=== PATIENT | male | born 1955 | race Caucasian/White ===

== ENCOUNTER 2018-10-28 10:04 | Emergency (ER) | payer MEDICARE, MEDICAID ==
[~2018-10-28] VITALS: Ht 170.2 cm; Wt 70.0 kg
[2018-10-28] MEDS ORDERED: ALBUTEROL SUL0.083 % IN (10:18)
[2018-10-28 10:39] LABS: HEMATOCRIT 53.2 % (39.0-50.0); HEMOGLOBIN 18.5 g/dl (14.0-18.0); IMMATURE GRANULOCYTES 0.3 % (0.0-5.0); MEAN CELL VOLUME 98.7 fL CALC (80.0-100.0); MEAN CORPUSCULAR HGB 34.3 pG CALC (26.0-32.0); MEAN CORPUSCULAR HGB CONC 34.8 g/L CALC (32.0-36.0); NEUT# 4.28 thou/uL (1.82-7.42); RED BLOOD COUNT 5.39 mill/uL (4.70-6.10); RED CELL DISTRI WIDTH 12.3 % (11.5-15.5)
[2018-10-28 10:53] LABS: ALBUMIN 4.7 g/dL (3.2-5.0); ALKALINE PHOSPHATASE 85 u/l (38-126); ANION GAP 15 (6-22 (CALC)); BILIRUBIN, TOTAL 0.6 mg/dL (0.0-1.4); BUN 17 mg/dL (8-23); BUN/CREATININE RATIO 18 (12-20 (CALC)); CARBON DIOXIDE 33 mmol/l (22-30); CHLORIDE 98 mmol/l (95-108); CREATININE 0.9 mg/dL (0.7-1.3); GFR > 60 ML/MIN (>=60 (CALC)); GFR FOR AFR.AMER. > 60 ML/MIN (>=60 (CALC)); POTASSIUM 4.8 mmol/l (3.5-5.1); SGOT/AST 25 u/l (19-48); SODIUM 141 mmol/l (137-146); TOTAL PROTEIN 8.9 g/dL (6.3-8.2)
[2018-10-28] MEDS ORDERED: LISINOPRIL20 MG PO (11:30)
[2018-10-28] MEDS ORDERED: METFORMIN500 MG PO (11:31)
[2018-10-28] MEDS ORDERED: LOVASTATIN20 M1 PO (11:31)
[2018-10-28] MEDS ORDERED: VENTOLIN HFA IN (11:32)
[2018-10-28] MEDS ORDERED: SPIRIVA HANDIHALER IN (11:32)
[2018-10-28] MEDS ORDERED: GABAPENTIN100 MG PO (11:33)
[2018-10-28] MEDS ORDERED: HYDROCHLOROT25 MG PO (11:33)
[2018-10-28] MEDS ORDERED: AMLODIPINE BESYL5 MG PO (11:35)
[2018-10-28] MEDS ORDERED: ZITHROMAX250 MG PO (11:52)
[2018-10-28] MEDS ORDERED: MEDDOSEPAK PO (11:52)
[2018-10-28 12:45] VITALS: BP 137/62
== END 2018-10-28 12:45 | disposition home or self-care (01) ==
LOC: ED 10:04
PROVIDERS: Emergency Medicine
DX: J44.1 Chronic obstructive pulmonary disease with (acute) exacerbation (principal); F17.210 Nicotine dependence, cigarettes, uncomplicated; R06.02 Shortness of breath; R06.2 Wheezing; R05 Cough
CPT/HCPCS: J3475

== ENCOUNTER 2019-02-14 11:24 | Inpatient (IN) | payer MEDICARE, MEDICAID ==
[~2019-02-14] VITALS: Ht 162.6 cm; Wt 66.2 kg
[~2019-02-14 11:24] MED LIST: ALBUTEROL SUL0.083 % IN; AMLODIPINE BESYL5 MG PO; GABAPENTIN100 MG PO; HYDROCHLOROT25 MG PO; LISINOPRIL20 MG PO; LOVASTATIN20 M1 PO; MEDDOSEPAK PO; METFORMIN500 MG PO; SPIRIVA HANDIHALER IN; VENTOLIN HFA IN; ZITHROMAX250 MG PO
[2019-02-14 11:55] LABS: IMMATURE GRANULOCYTES 0.3 % (0.0-5.0); MEAN CELL VOLUME 96.5 fL CALC (80.0-100.0); MEAN CORPUSCULAR HGB 33.5 pG CALC (26.0-32.0); MEAN CORPUSCULAR HGB CONC 34.7 g/L CALC (32.0-36.0); NEUT# 2.52 thou/uL (1.82-7.42); RED BLOOD COUNT 4.63 mill/uL (4.70-6.10)
[2019-02-14 12:21] LABS: HEMATOCRIT 44.7 % (39.0-50.0); HEMOGLOBIN 15.5 g/dl (14.0-18.0)
[2019-02-14 12:32] LABS: ALBUMIN 3.8 g/dL (3.2-5.0); ALKALINE PHOSPHATASE 78 u/l (38-126); BILIRUBIN, TOTAL 0.9 mg/dL (0.0-1.4); BUN 13 mg/dL (8-23); BUN/CREATININE RATIO 20 (12-20 (CALC)); CARBON DIOXIDE 32 mmol/l (22-30); CHLORIDE 93 mmol/l (95-108); CREATININE 0.7 mg/dL (0.7-1.3); GFR > 60 ML/MIN (>=60 (CALC)); GFR FOR AFR.AMER. > 60 ML/MIN (>=60 (CALC)); SGOT/AST 39 u/l (19-48); SODIUM 134 mmol/l (137-146)
[2019-02-14 12:33] LABS: ANION GAP 13 (6-22 (CALC)); POTASSIUM 3.5 mmol/l (3.5-5.1); TOTAL PROTEIN 6.6 g/dL (6.3-8.2)
[2019-02-14 12:43] LABS: MYOGLOBIN 57 ng/mL (0 - 121)
[2019-02-14 15:09] LABS: URINE BILIRUBIN - DIPSTICK NEGATIVE (NEGATIVE); URINE BLOOD DIPSTICK SMALL (NEGATIVE); URINE COLOR YELLOW; URINE GLUCOSE - DIPSTICK 250 mg/dL (NEGATIVE); URINE KETONE 15 mg/dL (NEGATIVE); URINE LEUK ESTERASE NEGATIVE (NEGATIVE); URINE NITRITE - DIPSTICK NEGATIVE (Negative); URINE PH 6.5 (4.5-8.0); URINE PROTEIN - DIPSTICK 30 mg/dL (NEG-TRACE); URINE SPECIFIC GRAVITY 1.025
[2019-02-14] MEDS ORDERED: CRESTOR5 MG PO (15:38)
[2019-02-14 16:49] VITALS: BP 151/57
[2019-02-14 19:20] VITALS: BP 135/74
[2019-02-15 04:20] VITALS: BP 165/90
[2019-02-15 05:12] VITALS: BP 130/73
[2019-02-15 05:15] LABS: ALBUMIN 3.5 g/dL (3.2-5.0); ALKALINE PHOSPHATASE 69 u/l (38-126); AMYLASE 32 u/l (30-110); ANION GAP 14 (6-22 (CALC)); BILIRUBIN, TOTAL 0.6 mg/dL (0.0-1.4); BUN 17 mg/dL (8-23); BUN/CREATININE RATIO 21 (12-20 (CALC)); CARBON DIOXIDE 34 mmol/l (22-30); CHLORIDE 91 mmol/l (95-108); CREATININE 0.8 mg/dL (0.7-1.3); GFR > 60 ML/MIN (>=60 (CALC)); GFR FOR AFR.AMER. > 60 ML/MIN (>=60 (CALC)); LIPASE 33 u/l (23-300); MAGNESIUM 2.1 mg/dL (1.6-2.3); POTASSIUM 4.1 mmol/l (3.5-5.1); SGOT/AST 42 u/l (19-48); SODIUM 136 mmol/l (137-146); TOTAL PROTEIN 6.3 g/dL (6.3-8.2)
[2019-02-15 05:20] LABS: HEMATOCRIT 42.8 % (39.0-50.0); HEMOGLOBIN 14.7 g/dl (14.0-18.0); IMMATURE GRANULOCYTES 0.8 % (0.0-5.0); MEAN CELL VOLUME 96.4 fL CALC (80.0-100.0); MEAN CORPUSCULAR HGB 33.1 pG CALC (26.0-32.0); MEAN CORPUSCULAR HGB CONC 34.3 g/L CALC (32.0-36.0); RED BLOOD COUNT 4.44 mill/uL (4.70-6.10); RED CELL DISTRI WIDTH 11.9 % (11.5-15.5)
[2019-02-15 06:26] LABS: PLATELET COUNT 106 thou/uL (130-400)
[2019-02-15 06:27] LABS: BAND 13 % (0-8); MANUAL DIFFERENTIAL YES
[2019-02-15 06:28] LABS: HYPOCHROMIA FEW; IMMATURE CELLS 1 %; OVALOCYTES FEW; PLATELET ESTIMATE MOD DECREASE
[2019-02-15 09:11] VITALS: BP 140/78
[2019-02-15 16:00] VITALS: BP 128/68
[2019-02-15 19:20] VITALS: BP 97/56
[2019-02-16 00:10] VITALS: BP 125/72
[2019-02-16 04:00] VITALS: BP 116/62
[2019-02-16 05:54] LABS: HEMATOCRIT 41.4 % (39.0-50.0); HEMOGLOBIN 14.1 g/dl (14.0-18.0); IMMATURE GRANULOCYTES 0.3 % (0.0-5.0); MEAN CELL VOLUME 96.7 fL CALC (80.0-100.0); MEAN CORPUSCULAR HGB 32.9 pG CALC (26.0-32.0); MEAN CORPUSCULAR HGB CONC 34.1 g/L CALC (32.0-36.0); PLATELET COUNT 132 thou/uL (130-400); RED BLOOD COUNT 4.28 mill/uL (4.70-6.10); RED CELL DISTRI WIDTH 12.1 % (11.5-15.5)
[2019-02-16 06:18] LABS: ALBUMIN 3.2 g/dL (3.2-5.0); ALKALINE PHOSPHATASE 59 u/l (38-126); AMYLASE 33 u/l (30-110); ANION GAP 13 (6-22 (CALC)); BILIRUBIN, TOTAL 0.4 mg/dL (0.0-1.4); BUN 25 mg/dL (8-23); BUN/CREATININE RATIO 33 (12-20 (CALC)); CARBON DIOXIDE 34 mmol/l (22-30); CHLORIDE 92 mmol/l (95-108); CREATININE 0.8 mg/dL (0.7-1.3); GFR > 60 ML/MIN (>=60 (CALC)); GFR FOR AFR.AMER. > 60 ML/MIN (>=60 (CALC)); LIPASE 59 u/l (23-300); MAGNESIUM 1.8 mg/dL (1.6-2.3); SGOT/AST 51 u/l (19-48); SODIUM 135 mmol/l (137-146); TOTAL PROTEIN 5.8 g/dL (6.3-8.2)
[2019-02-16 06:53] LABS: BAND 6 % (0-8); MANUAL DIFFERENTIAL YES
[2019-02-16 06:54] LABS: IMMATURE CELLS 1 %; MICROCYTOSIS FEW; PLATELET ESTIMATE NORMAL; POIKILOCYTOSIS FEW
[2019-02-16 06:56] LABS: OVALOCYTES FEW
[2019-02-16 09:30] VITALS: BP 138/78
[2019-02-16 12:00] VITALS: BP 123/67
[2019-02-16 17:33] VITALS: BP 144/85
[2019-02-16 19:10] VITALS: BP 112/71
[2019-02-17 00:11] VITALS: BP 139/92
[2019-02-17 04:08] VITALS: BP 133/68
[2019-02-17 05:03] LABS: HEMATOCRIT 44.6 % (39.0-50.0); HEMOGLOBIN 15.2 g/dl (14.0-18.0); IMMATURE GRANULOCYTES 1.4 % (0.0-5.0); MEAN CELL VOLUME 97.6 fL CALC (80.0-100.0); MEAN CORPUSCULAR HGB 33.3 pG CALC (26.0-32.0); MEAN CORPUSCULAR HGB CONC 34.1 g/L CALC (32.0-36.0); PLATELET COUNT 138 thou/uL (130-400); RED BLOOD COUNT 4.57 mill/uL (4.70-6.10); RED CELL DISTRI WIDTH 12.1 % (11.5-15.5)
[2019-02-17 05:16] LABS: ALBUMIN 3.3 g/dL (3.2-5.0); ALKALINE PHOSPHATASE 62 u/l (38-126); ANION GAP 14 (6-22 (CALC)); BILIRUBIN, TOTAL 0.5 mg/dL (0.0-1.4); BUN 24 mg/dL (8-23); BUN/CREATININE RATIO 32 (12-20 (CALC)); CARBON DIOXIDE 32 mmol/l (22-30); CHLORIDE 94 mmol/l (95-108); CREATININE 0.8 mg/dL (0.7-1.3); GFR > 60 ML/MIN (>=60 (CALC)); GFR FOR AFR.AMER. > 60 ML/MIN (>=60 (CALC)); MAGNESIUM 1.9 mg/dL (1.6-2.3); SGOT/AST 48 u/l (19-48); SODIUM 137 mmol/l (137-146); TOTAL PROTEIN 5.9 g/dL (6.3-8.2)
[2019-02-17 05:34] LABS: BAND 2 % (0-8); MANUAL DIFFERENTIAL YES; PLATELET ESTIMATE NORMAL
[2019-02-17 08:04] VITALS: BP 148/76
[2019-02-17 13:29] VITALS: BP 128/75
[2019-02-17 16:27] VITALS: BP 158/82
[2019-02-17 20:05] VITALS: BP 128/71
[2019-02-18 00:45] VITALS: BP 138/72
[2019-02-18 05:03] VITALS: BP 128/72
[2019-02-18 05:13] LABS: HEMATOCRIT 45.9 % (39.0-50.0); HEMOGLOBIN 15.3 g/dl (14.0-18.0); IMMATURE GRANULOCYTES 2.7 % (0.0-5.0); MEAN CELL VOLUME 98.5 fL CALC (80.0-100.0); MEAN CORPUSCULAR HGB 32.8 pG CALC (26.0-32.0); MEAN CORPUSCULAR HGB CONC 33.3 g/L CALC (32.0-36.0); PLATELET COUNT 161 thou/uL (130-400); RED BLOOD COUNT 4.66 mill/uL (4.70-6.10); RED CELL DISTRI WIDTH 12.2 % (11.5-15.5)
[2019-02-18 05:33] LABS: ALBUMIN 3.1 g/dL (3.2-5.0); ALKALINE PHOSPHATASE 61 u/l (38-126); ANION GAP 12 (6-22 (CALC)); BILIRUBIN, TOTAL 0.5 mg/dL (0.0-1.4); BUN 25 mg/dL (8-23); BUN/CREATININE RATIO 38 (12-20 (CALC)); CARBON DIOXIDE 33 mmol/l (22-30); CHLORIDE 97 mmol/l (95-108); CREATININE 0.6 mg/dL (0.7-1.3); GFR > 60 ML/MIN (>=60 (CALC)); GFR FOR AFR.AMER. > 60 ML/MIN (>=60 (CALC)); POTASSIUM 4.2 mmol/l (3.5-5.1); SGOT/AST 37 u/l (19-48); SODIUM 138 mmol/l (137-146); TOTAL PROTEIN 5.8 g/dL (6.3-8.2)
[2019-02-18 05:48] LABS: MANUAL DIFFERENTIAL YES
[2019-02-18 07:49] VITALS: BP 134/75
[2019-02-18 11:11] VITALS: BP 139/78
[2019-02-18] MEDS ORDERED: DOXYCYCL HYC100 MG PO (12:34)
== END 2019-02-18 12:52 | disposition home or self-care (01) | DRG 193 ==
LOC: ED 11:24 → ED-I 14:22 → ED 15:18 → MS2 15:19
PROVIDERS: Emergency Medicine; ADMIT Internal Medicine Nephrology; ATTEND Internal Medicine Nephrology
DX: J18.9 Pneumonia, unspecified organism (principal); J96.02 Acute respiratory failure with hypercapnia; J96.01 Acute respiratory failure with hypoxia; J44.1 Chronic obstructive pulmonary disease with (acute) exacerbation; J44.0 Chronic obstructive pulmonary disease with (acute) lower respiratory infection; I10 Essential (primary) hypertension; E11.40 Type 2 diabetes mellitus with diabetic neuropathy, unspecified; E78.5 Hyperlipidemia, unspecified; M19.90 Unspecified osteoarthritis, unspecified site; F17.200 Nicotine dependence, unspecified, uncomplicated; G89.29 Other chronic pain; Z99.81 Dependence on supplemental oxygen
CPT/HCPCS: G0378; J1956; J3475

== ENCOUNTER 2019-03-23 11:09 | Observation (INO) | payer MEDICARE, MEDICAID ==
[~2019-03-23] VITALS: Ht 165.1 cm; Wt 62.1 kg
[~2019-03-23 11:09] MED LIST changes: +CRESTOR5 MG PO; +DOXYCYCL HYC100 MG PO
--- NOTE | 2019-03-23 11:16 | NUR ---
PT TO ROOM VIA EMS PT STATES THAT HIS BLOOD SUGAR WAS ELEVATED. PT DID NOT WANT TO COME TO ER FOR PERSONAL REASONS AND ISSUES WITH HIS ADMISSION. PT AGREED TO STAY IN ER AND BE EVALUATED. \ PT IS AOX4. STATES THAT HIS BREATHING IS BAD BUT IS HIS NORMAL. PT DENIES ANY C/P, NEW SOB, N/V OR WEAKNESS.
[2019-03-23] MEDS ORDERED: ALPRAZOLAM0.5 MG PO (11:21)
[2019-03-23] MEDS ORDERED: DIFLUCAN100 MG PO (11:22)
[2019-03-23] MEDS ORDERED: TRESIBA FL100 UNIT/M SC (11:23)
[2019-03-23 11:48] LABS: IMMATURE GRANULOCYTES 0.4 % (0.0-5.0); MEAN CELL VOLUME 93.5 fL CALC (80.0-100.0); MEAN CORPUSCULAR HGB 32.7 pG CALC (26.0-32.0); NEUT# 2.67 thou/uL (1.82-7.42); RED BLOOD COUNT 3.85 mill/uL (4.70-6.10); RED CELL DISTRI WIDTH 12.9 % (11.5-15.5)
[2019-03-23 11:52] LABS: HEMOGLOBIN 12.6 g/dl (14.0-18.0)
--- NOTE | 2019-03-23 12:00 | NUR ---
PT RESTING ON STRETCHER, NO COMPLAINST STATED AT THIS TIME.
[2019-03-23 12:09] LABS: BUN 10 mg/dL (8-23); BUN/CREATININE RATIO 18 (12-20 (CALC)); CARBON DIOXIDE 30 mmol/l (22-30); CHLORIDE 91 mmol/l (95-108); CREATININE 0.5 mg/dL (0.7-1.3); GFR > 60 ML/MIN (>=60 (CALC)); GFR FOR AFR.AMER. > 60 ML/MIN (>=60 (CALC)); POTASSIUM 3.4 mmol/l (3.5-5.1)
[2019-03-23 12:11] LABS: ANION GAP 13 (6-22 (CALC)); SODIUM 131 mmol/l (137-146)
--- NOTE | 2019-03-23 12:30 | NUR ---
MD AT BEDSIDE TO DISCUSS FINDINGS AND TREATMENTS
--- NOTE | 2019-03-23 14:02 | NUR ---
REPROT CALLED TO [facility] SONIA LOWN ACCEPTED PT
--- NOTE | 2019-03-23 14:10 | NUR ---
PT TO CT AND WILL BE BROUGHT TO [facility]. SONIA BAH NOTIFIED OF TRANSPORT AND SCAN. PT BELONGINGS BROUGHT TO ROOM BY LINDA.
--- NOTE | 2019-03-23 14:22 | NUR ---
PT ARRIVED TO FLOOR VIA WHEELCHAIR IN STABLE CONDITION ACCOMPANIED BY SALZAAR CHEW;PT AMBULATED WITH A WEAK GAIT AND 1 PERSON ASSIST TO STANDING SCALE AND BEDSIDE;WT AND VS OBTAINED BY AVI SANDERS;PT A&O X3,ORIENTED TO ROOM AND CALL LIGHT SYSTEM;PT REPORTS ELEVATED BLOOD SUGAR DISCOVERED BY [facility];PT DENIES ANY CURRENT PAIN OR DISCOMFORTS,PAIN SCALE AND REPORTING EDUCATED;ASSSSMENT COMPLETED;RESPIRATIONS SHALLOW WITH EXERTIONAL SOB NOTED, PT HAS A HX OF COPD AND WEARS O2 @ 3L VIA NC;ABDOMEN SOFT ON PALPATION AND ACTIVE IN ALL 4 QUADRANTS,LAST BM UNKNOWN AND MD MADE AWARE;STRONG PEDAL PULSES;SKIN INTACT;EMS #20G TO LAC FLUSHED AND PATENT,SITE APPEARS HEALTHY;TELE MONITORING IN PLACE;ACCUCHECK 297;FRESH WATER PROVIDED;PT DENIES ANY ADDITIONAL NEEDS AND IS ENCOURAGED TO CALL FOR ASSISTANCE IF NEEDED;FALL PRECAUTIONS IN PLACE WITH CALL LIGHT IN REACH;WILL CONTINUE TO MONITOR
[2019-03-23 14:58] VITALS: BP 115/61; BP 122/69
--- NOTE | 2019-03-23 16:42 | NUR ---
AT BEDSIDE DISCUSSING POC.
--- NOTE | 2019-03-23 17:30 | NUR ---
PT RESTING IN SEMI FOWLERS POSITION;RESPIRATIONS SHALLOW ON O2 @ 3L VIA NC;PT DENIES ANY CURRENT PAIN OR NEEDS;TELE MONITORING IN PLACE;ACCUCHECK 258, PT COVERED WITH SLIDING SCALE PER ORDER;ENCOURAGED TO CALL FOR ASSISTANCE IF NEEDED;CALL LIGHT IN REACH;WILL CONTINUE TO MONITOR
--- NOTE | 2019-03-23 19:02 | NUR ---
BEDSIDE REPORT RECEIVED FROM HARRY DAIGLE. PT IN BED IN LOW FOWLERS POSITION, REQUESTING 02 EXTENSION TO TUBING SO THAT HE CAN AMBULATE TO RESTROOM, WILL PROVIDE. DENIES ANY OTHER NEEDS AT THIS TIME, CALL LIGHT IN HAND.
[2019-03-23 20:33] VITALS: BP 126/72
--- NOTE | 2019-03-23 20:35 | NUR ---
PT MED ORDERS PROVIDE AND ASSESSED, LUNG SOUNDS CLEAR, ABD FIRM NON-TENDER W/ACTIVE BOWEL SOUNDS. PT REPORTS LARGE WATERY BM JUST PREVIOUS TO MY ENTERING ROOM/REFUSED THE LACTULOSE. PT REQUESTING ICECREAM AND CRACKERS. POC DISCUSSED, WILL FOLLOW-UP WITH BLOOD SUGAR ACCU-CHECK PRIOR TO SNACK BEING PROVIDED.
[2019-03-24] VITALS: BP 125/71
--- NOTE | 2019-03-24 02:50 | NUR ---
PT MEDICATED ORDERS PROVIDE. PT WAS SLEEPING, BUT AWOKE TO MY VOICE. DENIES ANY OTHER NEEDS AT THIS TIME. TV AND LIGHTS ON, CALL LIGHT NEAR HAND
--- NOTE | 2019-03-24 04:45 | NUR ---
DEVI IS IN W/PT AT THIS TIME. PT IS REQUESTING COFFEE/PROVIDED, PT ASKED FOR HIS SUGAR TO BE CHECKED STATING HE IS STARVING, SNACK WAS PREVIOUSLY PROVIDED OVERNIGHT. BLOOD SUGAR ACCU-CHECK SHOWED 299.
[2019-03-24 04:46] VITALS: BP 132/78
[2019-03-24 05:19] LABS: HEMATOCRIT 36.7 % (39.0-50.0); HEMOGLOBIN 12.5 g/dl (14.0-18.0); MEAN CELL VOLUME 94.3 fL CALC (80.0-100.0); MEAN CORPUSCULAR HGB 32.1 pG CALC (26.0-32.0); MEAN CORPUSCULAR HGB CONC 34.1 g/L CALC (32.0-36.0); NEUT# 3.43 thou/uL (1.82-7.42); RED BLOOD COUNT 3.89 mill/uL (4.70-6.10); RED CELL DISTRI WIDTH 12.9 % (11.5-15.5)
[2019-03-24 05:48] LABS: ALBUMIN 3.3 g/dL (3.2-5.0); AMYLASE 57 u/l (30-110); BILIRUBIN, TOTAL 0.5 mg/dL (0.0-1.4); BUN 13 mg/dL (8-23); BUN/CREATININE RATIO 26 (12-20 (CALC)); CARBON DIOXIDE 29 mmol/l (22-30); CHLORIDE 90 mmol/l (95-108); CREATININE 0.5 mg/dL (0.7-1.3); GFR > 60 ML/MIN (>=60 (CALC)); GFR FOR AFR.AMER. > 60 ML/MIN (>=60 (CALC)); LIPASE 65 u/l (23-300); MAGNESIUM 1.7 mg/dL (1.6-2.3); SGOT/AST 18 u/l (19-48); SODIUM 131 mmol/l (137-146); TOTAL PROTEIN 6.6 g/dL (6.3-8.2)
[2019-03-24 05:59] LABS: IMMATURE GRANULOCYTES 1.3 % (0.0-5.0)
[2019-03-24 06:00] LABS: ALKALINE PHOSPHATASE 93 u/l (38-126); ANION GAP 17 (6-22 (CALC)); POTASSIUM 4.5 mmol/l (3.5-5.1)
--- NOTE | 2019-03-24 07:15 | NUR ---
REPORT RECEIVED FROM CARSONRN;PT RESTING IN SEMI FOWLERS POSITION;INTRODUCED SELF TO PT AND POC DISCUSSED;PT EXPRESSES AGITATION WITH NURSING STAFF AND MD REGARDING SCHEDULED MEDICATIONS AND REASON FOR ADMIT;INFORMED PT THAT ALL MEDICATIONS SCHEDULED ARE DONE BY THE MD AND CONCERNS REGARDING ANY MEDICATION CAN BE DISCUSSED DURING ROUNDS;PT STATES "I SHOULD'T HAVE EVEN BEEN ADMITTED", WRITTER EXPLAINED TO PT REASON FOR ADMIT AND INFORMED THAT HE COULD HAVE REFUSED ADMIT AT THE TIME OF ADMISSION IF HE TRULY DID NOT WANT TO STAY AT [facility];PT APOLOGIZES TO WRITTER AND STATES "IM NOT MAD HONEY, IM JUST IRRIATED";RESPIRATIONS LABORED ON O2 @ 3L VIA NC;PT DENIES ANY CURRENT PAIN OR NEEDS;ACCUCHECK 330 AND PT TO BE COVERED WITH NOVOLOG SLIDING SCALE PER ORDER;PT DENIES ANY ADDITIONAL NEEDS AND IS ENCOURAGED TO CALL FOR ASSISTANCE IF NEEDED;CALL LIGHT IN REACH;WILL CONTINUE TO MONITOR
--- NOTE | 2019-03-24 09:05 | NUR ---
PT RESTING AT BEDSIDE,A&O X3;VS OBTAINED AND ASSESSMENT COMPLETED;PT DENIES ANY CURRENT CHEST PAIN OR DISCOMFORTS;RESPIRATIONS SHALLOW AND LABORED ON O2 @ 3L VIA NC, PT IS HOME OXYGEN DEPENDENT;ABDOMEN DISTENDED/SOFT ON PALPATION AND ACTIVE IN ALL 3 QUADRANTS, LAST BM 03/24/19;STRONG PEDAL PULSES WITH TRACE EDEMA NOTED TO BLE,ENCOURAGED ELEVATION OF BLE;TELE MONITORING IN PLACE;EMS #20G TO LAC FLUSHED AND PATENT, PT REQUESTS IV SITE TO BE REMOVED STATING "IF YOU DONT TAKE IT OUT I WILL, IM LEAVING", EMS IV REMOVED WITH CATHETER INTACT;SKIN INTACT;PT REMOVING TELE MONITORING AT THIS TIME;PT REQUESTS AMA FORM.
[2019-03-24 09:06] VITALS: BP 159/94
[2019-03-24 09:08] VITALS: BP 159/94
--- NOTE | 2019-03-24 09:50 | NUR ---
PT REFUSES TO SIGN AMA FORN STATING "MY CARE NURSE RN WILL SIGN IT"
--- NOTE | 2019-03-24 10:37 | NUR ---
ELVA LANDON, DIRECTOR OF CASE MANAGEMENT AT BEDSIDE.
--- NOTE | 2019-03-24 11:00 | NUR ---
PT RESTING IN BED AWAITING [facility] FOR TRANSPORTATION HOME;ACCUCHECK OF 470 OBTAINED, NOTIFIED AND NO NEW ORDERS RECEIVED.PT MEDICATED WITH NOVOLOG SLIDING SCALE PER ORDERS.
--- NOTE | 2019-03-24 11:15 | NUR ---
PT LEFT AMA VIA WHEELCHAIR IN STABLE CONDITION ACCOMPANIED BY VOLUNTEER. PT TO BE TRANSPORTED HOME BY PAU[facility]S [facility].
--- NOTE | 2019-03-24 11:15 | NUR ---
Discharge instructions given. Patient verbalizes understanding of same. Discharged in stable condition via Wheelchair to [facility] with *Other. All belongings sent with pt. Pt to be transported by [employer]. Pt left via wheelchair in stable condition accompanied by volunteer.
== END 2019-03-24 11:14 | disposition left against medical advice (07) ==
LOC: ED 11:09 → ED-I 12:32 → ED 12:44 → MS2 12:45
PROVIDERS: Family Medicine; ADMIT Internal Medicine Nephrology; ATTEND Internal Medicine Nephrology
DX: R07.9 Chest pain, unspecified (principal); J44.1 Chronic obstructive pulmonary disease with (acute) exacerbation; J96.00 Acute respiratory failure, unspecified whether with hypoxia or hypercapnia; I10 Essential (primary) hypertension; E11.42 Type 2 diabetes mellitus with diabetic polyneuropathy; E78.5 Hyperlipidemia, unspecified; M19.90 Unspecified osteoarthritis, unspecified site; Z87.891 Personal history of nicotine dependence

== ENCOUNTER 2020-08-07 08:17 | Day surgery (SDC) | payer MEDICARE, MEDICAID ==
[~2020-08-07] VITALS: Ht 167.6 cm; Wt 57.2 kg
[~2020-08-07 08:17] MED LIST changes: +ALPRAZOLAM0.5 MG PO; +DIFLUCAN100 MG PO; +HYDROCHLOROT12.5 MG PO; +IPRATROPIU0.5 MG/3 M IN; +TRESIBA FL100 UNIT/M SC
[2020-08-07 10:34] VITALS: BP 130/72
== END 2020-08-07 11:35 | disposition home or self-care (01) ==
LOC: ENDO 08:17 → ORM 11:30 → ENDO 11:35
PROVIDERS: ATTEND Surgery
PROC: 0DBL8ZX Excision of Transverse Colon, Via Natural or Artificial Opening Endoscopic, Diagnostic (ICD-10-PCS; principal; 2020-08-07)
DX: D12.3 Benign neoplasm of transverse colon (principal); K64.8 Other hemorrhoids; E11.9 Type 2 diabetes mellitus without complications; I10 Essential (primary) hypertension; J44.9 Chronic obstructive pulmonary disease, unspecified; F17.210 Nicotine dependence, cigarettes, uncomplicated; Z79.84 Long term (current) use of oral hypoglycemic drugs; Z20.828 Contact with and (suspected) exposure to other viral communicable diseases

== ENCOUNTER 2021-06-26 18:25 | Observation (INO) | payer MEDICARE, MEDICAID ==
[~2021-06-26] VITALS: Ht 170.2 cm; Wt 51.0 kg
[2021-06-26 19:30] LABS: HEMATOCRIT 48.4 % (39.0-50.0); IMMATURE GRANULOCYTES 0.4 % (0.0-5.0); MEAN CORPUSCULAR HGB 35.8 pG CALC (26.0-32.0); MEAN CORPUSCULAR HGB CONC 33.1 g/dL CAL (32.0-36.0); NEUT# 8.98 thou/uL (1.82-7.42); RED BLOOD COUNT 4.47 mill/uL (4.70-6.10); RED CELL DISTRI WIDTH 13.3 % (11.5-15.5)
[2021-06-26 19:46] LABS: URINE BILIRUBIN - DIPSTICK NEGATIVE (NEGATIVE); URINE BLOOD DIPSTICK SMALL (NEGATIVE); URINE COLOR YELLOW; URINE GLUCOSE - DIPSTICK 100 mg/dL (NEGATIVE); URINE KETONE NEGATIVE (NEGATIVE); URINE LEUK ESTERASE NEGATIVE (NEGATIVE); URINE PROTEIN - DIPSTICK NEGATIVE (NEG-TRACE); URINE SPECIFIC GRAVITY 1.015; URINE UROBILINOGEN - DIPSTICK 0.2 E.U./dL (0.2)
[2021-06-26 19:47] LABS: MEAN CELL VOLUME 108.3 fL CALC (80.0-100.0); URINE NITRITE - DIPSTICK NEGATIVE (Negative)
[2021-06-26 20:16] LABS: ALKALINE PHOSPHATASE 48 u/l (38-126); BILIRUBIN, TOTAL 0.9 mg/dL (0.0-1.4); BUN 15 mg/dL (8-23); BUN/CREATININE RATIO 29 (12-20 (CALC)); CHLORIDE 91 mmol/l (95-108); CREATININE 0.5 mg/dL (0.7-1.3); GFR > 60 ML/MIN (>=60 (CALC)); GFR FOR AFR.AMER. > 60 ML/MIN (>=60 (CALC)); POTASSIUM 3.3 mmol/l (3.5-5.1); SGOT/AST 37 u/l (19-48); SODIUM 135 mmol/l (137-146)
[2021-06-26 20:23] LABS: ALBUMIN 3.3 g/dL (3.2-5.0); ANION GAP 6 (6-22 (CALC)); TOTAL PROTEIN 6.3 g/dL (6.3-8.2)
[2021-06-26 20:24] LABS: CARBON DIOXIDE 41 mmol/l (22-30)
[2021-06-26 20:28] LABS: MYOGLOBIN 108 ng/mL (0 - 121)
[2021-06-26 22:45] VITALS: BP 154/84
[2021-06-26 23:00] VITALS: BP 139/74
[2021-06-26 23:15] VITALS: BP 131/73
[2021-06-26 23:30] VITALS: BP 150/73
[2021-06-26 23:45] VITALS: BP 136/68
[2021-06-27] VITALS (20 sets, daily range): BP systolic 96–153; BP diastolic 50–84
[2021-06-27 05:17] LABS: HEMATOCRIT 43.8 % (39.0-50.0); HEMOGLOBIN 14.2 g/dl (14.0-18.0); MEAN CELL VOLUME 109.2 fL CALC (80.0-100.0); MEAN CORPUSCULAR HGB 35.4 pG CALC (26.0-32.0); MEAN CORPUSCULAR HGB CONC 32.4 g/dL CAL (32.0-36.0); RED BLOOD COUNT 4.01 mill/uL (4.70-6.10)
[2021-06-27 05:26] LABS: BUN 20 mg/dL (8-23); BUN/CREATININE RATIO 34 (12-20 (CALC)); CARBON DIOXIDE 39 mmol/l (22-30); CHLORIDE 94 mmol/l (95-108); CREATININE 0.6 mg/dL (0.7-1.3); GFR > 60 ML/MIN (>=60 (CALC)); GFR FOR AFR.AMER. > 60 ML/MIN (>=60 (CALC)); SODIUM 135 mmol/l (137-146)
[2021-06-27 05:27] LABS: ANION GAP 6 (6-22 (CALC)); POTASSIUM 4.4 mmol/l (3.5-5.1)
[2021-06-27] MEDS ORDERED: TRELEGY ELLIPTA1 AER IN (09:35)
[2021-06-28] VITALS (10 sets, daily range): BP systolic 87–159; BP diastolic 50–77
[2021-06-28 05:41] LABS: HEMATOCRIT 39.2 % (39.0-50.0); HEMOGLOBIN 12.5 g/dl (14.0-18.0); MEAN CELL VOLUME 109.8 fL CALC (80.0-100.0); MEAN CORPUSCULAR HGB CONC 31.9 g/dL CAL (32.0-36.0); RED BLOOD COUNT 3.57 mill/uL (4.70-6.10); RED CELL DISTRI WIDTH 13.4 % (11.5-15.5)
[2021-06-28 06:24] LABS: ANION GAP 4 (6-22 (CALC)); BUN 15 mg/dL (8-23); BUN/CREATININE RATIO 31 (12-20 (CALC)); CARBON DIOXIDE 38 mmol/l (22-30); CHLORIDE 97 mmol/l (95-108); CREATININE 0.5 mg/dL (0.7-1.3); GFR > 60 ML/MIN (>=60 (CALC)); GFR FOR AFR.AMER. > 60 ML/MIN (>=60 (CALC)); POTASSIUM 3.6 mmol/l (3.5-5.1); SODIUM 136 mmol/l (137-146)
[2021-06-29 03:50] VITALS: BP 113/70
[2021-06-29 05:20] LABS: HEMOGLOBIN 13.2 g/dl (14.0-18.0); MEAN CELL VOLUME 110.2 fL CALC (80.0-100.0); MEAN CORPUSCULAR HGB 35.5 pG CALC (26.0-32.0); MEAN CORPUSCULAR HGB CONC 32.2 g/dL CAL (32.0-36.0); RED BLOOD COUNT 3.72 mill/uL (4.70-6.10)
[2021-06-29 05:40] LABS: BUN 15 mg/dL (8-23); BUN/CREATININE RATIO 40 (12-20 (CALC)); CHLORIDE 96 mmol/l (95-108); CREATININE 0.4 mg/dL (0.7-1.3); GFR > 60 ML/MIN (>=60 (CALC)); GFR FOR AFR.AMER. > 60 ML/MIN (>=60 (CALC)); POTASSIUM 3.7 mmol/l (3.5-5.1); SODIUM 137 mmol/l (137-146)
[2021-06-29 05:46] LABS: ANION GAP 3 (6-22 (CALC))
[2021-06-29 05:56] LABS: CARBON DIOXIDE 42 mmol/l (22-30)
[2021-06-29 07:15] VITALS: BP 136/76
[2021-06-29 10:48] VITALS: BP 130/69
[2021-06-29 14:53] VITALS: BP 131/69
[2021-06-29 18:50] VITALS: BP 122/66
[2021-06-29 23:22] VITALS: BP 110/58
[2021-06-30 03:50] VITALS: BP 122/68
[2021-06-30 05:32] LABS: HEMATOCRIT 38.8 % (39.0-50.0); HEMOGLOBIN 12.5 g/dl (14.0-18.0); MEAN CELL VOLUME 109.6 fL CALC (80.0-100.0); MEAN CORPUSCULAR HGB 35.3 pG CALC (26.0-32.0); MEAN CORPUSCULAR HGB CONC 32.2 g/dL CAL (32.0-36.0); RED BLOOD COUNT 3.54 mill/uL (4.70-6.10)
[2021-06-30 05:53] LABS: BUN 17 mg/dL (8-23); BUN/CREATININE RATIO 35 (12-20 (CALC)); CHLORIDE 94 mmol/l (95-108); CREATININE 0.5 mg/dL (0.7-1.3); GFR > 60 ML/MIN (>=60 (CALC)); GFR FOR AFR.AMER. > 60 ML/MIN (>=60 (CALC)); POTASSIUM 3.9 mmol/l (3.5-5.1); SODIUM 136 mmol/l (137-146)
[2021-06-30 06:02] LABS: ANION GAP 5 (6-22 (CALC))
[2021-06-30 06:12] LABS: CARBON DIOXIDE 41 mmol/l (22-30)
[2021-06-30 07:44] VITALS: BP 130/79
[2021-06-30 10:50] VITALS: BP 132/62
[2021-06-30 14:42] VITALS: BP 127/60
[2021-06-30 19:00] VITALS: BP 105/56
[2021-07-01 04:08] VITALS: BP 129/72
[2021-07-01 06:09] LABS: HEMATOCRIT 39.4 % (39.0-50.0); HEMOGLOBIN 12.9 g/dl (14.0-18.0); MEAN CELL VOLUME 110.1 fL CALC (80.0-100.0); MEAN CORPUSCULAR HGB CONC 32.7 g/dL CAL (32.0-36.0); RED BLOOD COUNT 3.58 mill/uL (4.70-6.10); RED CELL DISTRI WIDTH 12.9 % (11.5-15.5)
[2021-07-01 06:31] LABS: BUN 17 mg/dL (8-23); BUN/CREATININE RATIO 43 (12-20 (CALC)); CHLORIDE 93 mmol/l (95-108); CREATININE 0.4 mg/dL (0.7-1.3); GFR > 60 ML/MIN (>=60 (CALC)); GFR FOR AFR.AMER. > 60 ML/MIN (>=60 (CALC)); POTASSIUM 3.9 mmol/l (3.5-5.1); SODIUM 137 mmol/l (137-146)
[2021-07-01 06:38] LABS: ANION GAP 5 (6-22 (CALC))
[2021-07-01 07:05] LABS: CARBON DIOXIDE 43 mmol/l (22-30)
[2021-07-01 07:15] VITALS: BP 117/60
[2021-07-01 10:30] VITALS: BP 115/67
[2021-07-01] MEDS ORDERED: PREDNISONE10 MG PO (13:20)
[2021-07-01] MEDS ORDERED: LEVAQUIN750 M1 PO (13:20)
[2021-07-01 15:30] VITALS: BP 110/60
[2021-07-01 18:44] VITALS: BP 110/68
[2021-07-02 04:00] VITALS: BP 122/76
[2021-07-02 07:03] VITALS: BP 137/75
[2021-07-02 15:20] VITALS: BP 121/68
[2021-07-02 19:44] VITALS: BP 124/62
[2021-07-03 05:05] VITALS: BP 124/67
[2021-07-03 06:23] LABS: HEMATOCRIT 39.4 % (39.0-50.0); HEMOGLOBIN 13.1 g/dl (14.0-18.0); MEAN CELL VOLUME 107.1 fL CALC (80.0-100.0); MEAN CORPUSCULAR HGB 35.6 pG CALC (26.0-32.0); MEAN CORPUSCULAR HGB CONC 33.2 g/dL CAL (32.0-36.0); RED BLOOD COUNT 3.68 mill/uL (4.70-6.10); RED CELL DISTRI WIDTH 12.7 % (11.5-15.5)
[2021-07-03 06:32] LABS: BUN 20 mg/dL (8-23); BUN/CREATININE RATIO 41 (12-20 (CALC)); CHLORIDE 88 mmol/l (95-108); CREATININE 0.5 mg/dL (0.7-1.3); GFR > 60 ML/MIN (>=60 (CALC)); GFR FOR AFR.AMER. > 60 ML/MIN (>=60 (CALC)); POTASSIUM 3.9 mmol/l (3.5-5.1); SODIUM 133 mmol/l (137-146)
[2021-07-03 06:41] LABS: ANION GAP 7 (6-22 (CALC))
[2021-07-03 06:53] LABS: CARBON DIOXIDE 42 mmol/l (22-30)
[2021-07-03 08:06] VITALS: BP 130/73
[2021-07-03 08:11] VITALS: BP 130/73
[2021-07-03] MEDS ORDERED: PREDNISONE10 MG PO (11:24)
== END 2021-07-03 14:24 ==
LOC: ED 18:25 → ED-I 21:38 → ED 21:51 → ICU 21:52 → MS2 06-28 15:20
PROVIDERS: Emergency Medicine; Nurse Practitioner; ADMIT Hospitalist; ATTEND Hospitalist
PROC: 5A09357 Assistance with Respiratory Ventilation, Less than 24 Consecutive Hours, Continuous Positive Airway Pressure (ICD-10-PCS; principal; 2021-06-26)
DX: J44.1 Chronic obstructive pulmonary disease with (acute) exacerbation (principal); J96.21 Acute and chronic respiratory failure with hypoxia; J96.12 Chronic respiratory failure with hypercapnia; I10 Essential (primary) hypertension; E11.9 Type 2 diabetes mellitus without complications; E78.5 Hyperlipidemia, unspecified; K21.9 Gastro-esophageal reflux disease without esophagitis; Z79.4 Long term (current) use of insulin; Z99.81 Dependence on supplemental oxygen; Z87.891 Personal history of nicotine dependence; Z20.822 Contact with and (suspected) exposure to COVID-19
CPT/HCPCS: G0378; J1650; J1956